=== PATIENT | female | born 1980 | race Two or more races ===

== ENCOUNTER → 2016-10-18 | Outpatient (CLI) | payer OTHER ==
[~2016-10-18] MED LIST: FLUO40CA PO; IBUP600T26 PO; LEVO50TA5 PO; LORT5TAB PO; SIMV10TA2 PO; TRAZ100T4 PO
--- NOTE | 2016-10-27 00:09 | ECWPNPC ---
PATIENT NAME: ALPHONSE CRUZ : 1980 GENDER: FEMALE VISIT DATE: 10/18/2016 DISCHARGE DATE: 10/18/16 1425 VISIT LOCKED DATE TIME: PHYSICIAN: LUCAS MARTIN RESOURCE: LUCAS MARTIN REASON FOR APPOINTMENT 1. BACK PAIN HISTORY OF PRESENT ILLNESS FALL RISK SCREENING: SCREENING :NO FALLS IN THE PAST YEAR PAIN SCREENING: PATIENT HAS A COMPLAINT OF ACUTE OR CHRONIC PAIN YES TODAY'S VISIT: NOTES: REFERRED BY CLAUDIA CONN /GÓMEZ FOR CONTINUED TREATMENT OF BACK PAIN. HAS PREVIOUSLY BEEN A PATIENT OF DR WALI COHN, PAIN MANAGEMENT [id number] AND HAS HAD INTERVENTIONAL TREATMENTS.PAIN BEGAN 2003 AFTER THE OF CHILD. DID PT FROM [id number]. NOTED THAT PAIN CAN BE ACROSS BACK, WRAPPING INTO THIGHS AND INTO BUTTUCKS. WAS HAVING SENSORY CHANGE ON LEFT SIDE. WEAKNESS IS REPORTED IN BOTH LEGS WITH PROLONGED STANDING. LEFT HAS ALWAYS BEEN WORST SIDE. HOT SHOWER IS HELPFUL, TENS CAN HELP, HAVING A HARD TIME SITTING, LAYING, STANDING, WALKING. WAS SEEN BY DR [place] NEUROSURGEON [place] [id number] - TOLD TO LOSE WEIGHT AND HE WOULD SEE HER BACK FOR POSSIBLE SURGERY. . PREVIOUS MEDS HAVE INCLUDED FLEXERIL, TRAMADOL, MORPHINE, HYDROCODONE, IBUPROFEN, RATES PAIN TODAY 6/10. DESCRIBES PAIN CONSTANT, SHARP, STABBINGACHING, BURNING, THROBBING SORE, AND SOMETIMES SHOOTING. MOST RECENT RADIOFREQUENCY ABLATIONS WERE 10/12 ON THE LEFT, AND 07/13 ON THE RIGHT. SHE WOULD LIKE TO MOVE FORWARD WITH THIS THERAPY IT HAS BEEN THE MOST HELP.. CURRENT MEDICATIONS TAKING SYNTHROID 50 MCG TABLET 1 TABLET ON AN EMPTY STOMACH IN THE MORNING ORALLY ONCE A DAY TAKING FLUOXETINE HCL 40 MG CAPSULE 1 CAPSULE IN THE MORNING ORALLY ONCE A DAY TAKING SIMVASTATIN 20 MG TABLET 1 TABLET ORALLY ONCE A DAY TAKING TRAZODONE HCL 50 MG TABLET 1 TABLET ORALLY BEFORE BEDTIME MEDICATION LIST REVIEWED AND RECONCILED WITH THE PATIENT PAST MEDICAL HISTORY FATIGUE INTERVERTEBRAL DISC DISORDER WITH MYELOPATHY. LUMBAR REGION LACTOSE INTOLERANT HYPERLIPIDEMIA GERD HYPOTHYROIDISM NERVOUSNESS HPV ANEMIA ALLERGIES PENICILLIN: ANAPHYLAXIS: ALLERGY MOLD: ITCHING: ALLERGY SURGICAL HISTORY PLASTIC SURGERY ON HER FACE 1983 CHOLECYSTECTOMY 2011 BILATERAL CARPAL TUNNEL SURGERY 2009 RIGHTL FOOT SURGERY 1996 COLONOSCOPY 2014 FAMILY HISTORY FATHER: ALIVE 58 YRS, DIAGNOSED WITH HYPERTENSION, CANCER MOTHER: ALIVE 54 YRS, DIAGNOSED WITH HYPERTENSION, OTHER 1DAUGHTER(S) - HEALTHY. FATHER--ESOPHAGEAL CA, PROSTATE CAMOTHER--UTERINE FIBROIDS,ENDOMETRIOSIS,HYPERLIPIDEMIA, LUPUS, RAYNAUDS. SOCIAL HISTORY GENERAL: TOBACCO USE ARE YOU A:NONSMOKER ALCOHOL SCREENING POINTS3 INTERPRETATIONPOSITIVE RECREATIONAL DRUG USE DRUG USE?NO CAFFEINE CAFFEINE USE?YES HOW OFTEN AND HOW MUCH? 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 DIET: LACTOSE FREE, REGULAR. EXERCISE: NO REGULAR EXERCISE. MARITAL STATUS: . OTHERS AT HOME: SPOUSE, CHILD, OTHER NON-RELATIVE. PETS: 2 CATS. EPISCOPALIAN NO RASTAFARIAN BELIEFS THAT WOULD IMPACT HEALTH CARE. LANGUAGE [place]. EDUCATION 3 YRS [facility] PLAN OF CARE REVIEWED WITH PATIENT AND SHE VERBALIZED UNDERSTANDING.. LEARNING BARRIERS / SPECIAL NEEDS VISION IMPAIRED?YES :CORRECTIVE LENSES COGNITIVELY IMPAIRED?NO READINESS TO LEARN?YES LEARNING PREFERENCES?YES :DEMONSTRATION/VERBAL INSTRUCTION LEARNING CAPABILITIES PRESENT?YES PAIN CLINIC PFS, CLERGY, PUBLIC HEALTH REFERRALS PFS REFERRAL NEEDED?NO CLERGY REFERRAL NEEDED?NO PUBLIC HEALTH REFERRAL NEEDED?NO ADVANCED DIRECTIVES HEALTH CARE PROXY?NO DDECLINED INFORMATION AT THIS TIME. POWER OF DESULPHURIZER OPERATOR?NO DOMESTIC VIOLENCE: NONE. HOSPITALIZATION/MAJOR DIAGNOSTIC PROCEDURE CHILDBIRTH 2004 REVIEW OF SYSTEMS CONSTITUTIONAL: ANY CHANGE IN YOUR MEDICAL CONDITION? NO . CHILLS NO . FEVER NO . INFECTION: DO YOU HAVE NEW INFECTIONS? NO . DO YOU HAVE HISTORY OF MRSA? NO . MUSCULOSKELETAL: ANY NEW PATTERNS OF PAIN OR NUMBNESS? NO . SYTEMIC LUPUS NO . GASTROENTEROLOGY: ANY NEW CHANGE IN BOWEL CONTROL? NO . BARRETTS ESOPHAGUS NO . CIRRHOSIS NO, HAS FATTY LIVER . HEPATITIS NO . LIVER FAILURE NO . ACID REFLUX YES . UNEXPLAINED WEIGHT LOSS NO . GENITOURINARY: ANY NEW CHANGE IN BLADDER CONTROL? NO . IS THERE A CHANCE YOU COULD BE ? NO . HEMATOLOGY/LYMPH: DO YOU TAKE ANY BLOOD THINNERS? (FOR EXAMPLE- COUMADIN, PLAVIX, AGGRENOX, PLATEL, PRADAXA, OR XARELTO) NO . WHEN WAS YOUR LAST DOSE? DATE: TIME: . LOW PLATELET COUNT NO . SICKLE CELL DISEASE NO . VON WILLIEBRANDS NO . FACTOR V LEIDEN NO . THALLASEMIA NO . ANEMIA YES . EASY BRUISING NO . NEUROLOGY: HAVE YOU FALLEN IN THE PAST 6 MONTHS? NO . ANY NEW EXTREMITY NUMBNESS OR WEAKNESS? NO . HEAD INJURY YES, MANY-- FROM CHEERLEADING . DEMENTIA NO . CEREBRAL PALSY NO . MULTIPLE SCLEROSIS NO . DIZZINESS NO . HEADACHE ADMITS,HISTORY OF MIGRAINES . STROKES NO . VERTIGO NO . CARDIOLOGY: DO YOU HAVE A PACEMAKER OR DEFIBRILLATOR? NO . ANGINA NO . HEART ATTACK NO . HEART SURGERY NO . CONGESTIVE HEART FAILURE/FLUID OVERLOAD NO . CHEST PAIN NO . HIGH BLOOD PRESSURE NO . IRREGULAR HEART BEAT NO . RESPIRATORY: HAVE YOU BEEN SICK IN THE PAST WEEK? NO . FEVER NO . FLU LIKE SYMPTOMS? NO . CPAP NO . BYPAP NO . ASTHMA YES,SPORTS INDUCED . EMPHYSEMA NO . CHRONIC LUNG DISEASES NO . SHORTNESS OF BREATH ON EXERTION NO . COUGH NO . SNORING YES . INTEGUMENTARY: DO YOU HAVE ANY RASHES OR OPEN SORES? NO - HAD PSORIASIS WHILE , AND DRY SKIN PATCHES OVER CHEST . ALLERGIC/IMMUNO: ARE YOU ALLERGIC TO SHELLFISH OR IV DYE? NO . ANY NEW ALLERGIES? NO . PSYCHIATRIC: DO YOU HAVE THOUGHTS OF HURTING YOURSELF OR SOMEONE ELSE? NO . ARE YOU ABUSED, NEGLECTED, OR IN AN UNSAFE ENVIRONMENT? NO . ENDOCRINOLOGY: ARE YOU DIABETIC? NO . THYROID DISORDER HYPOTHYROID . OTHER: DO YOU NEED ANY PRESCRIPTIONS? NO . IF YES, PLEASE LIST: ____ . ANY NEW PROBLEMS WITH YOUR MEDICATIONS? NO . WHEN DID YOU LAST EAT? ____ . WHEN DID YOU LAST DRINK? ____ . WHAT DID YOU LAST DRINK? ____ . NAME OF PERSON DRIVING YOU HOME? ____ . DO YOU HAVE ANY OTHER QUESTIONS OR CONCERNS NO . REVIEWED BY: PROVIDER: LUCAS CONN . VITAL SIGNS WT 195 LBS, HT 63 IN, BMI 34.54 INDEX, BP 122/65 MM HG, HR 89 /MIN, RR 16 /MIN, TEMP 98 F, OXYGEN SAT % 99, REVIEWED BY: AD. EXAMINATION GENERAL EXAMINATION: PSYCHALERT , ORIENTED X 3 , APPROPRIATE MOOD AND AFFECT , GOOD EYE CONTACT, EXCELLANT HISTORIAN. HEENT:NORMOCEPHALIC, NO LYMPHADENOPATHY, THYROID ENLARGEMENT NOTED RIGHT GREATER THAN LEFT. LUNGS:CLEAR TO AUSCULTATION BILATERALLY, NO WHEEZES, RALES OR RHONCHI. HEART:NORMAL S1S2, NO MURMURS, CLICK OR RUBS. MUSCULOSKELETAL:MUSCLE STRENGTH TESTING 5/5 BILATERAL. LOWER EXTREMITIES. POINT TENDERNESS OVER LUMBAR SPINOUS PROCESSESS AND ACROSS THE LUMBOSACRAL AXIS. AND, OVER EFTL>RIGHT SACRAL ILIAC JOINTS. PAIN WITH PATRICKS WITH INWARD ROTATION BILATERALLY. NO PAIN WITH PELVIC COMPRESSION. SLOW TO RISE TO STANDING POSITION. POSTUE UPRIGHT . GAIT NONANTALGIC. NEUROLOGIC EXAM:DTR'S 3+ BILATERAL UPPER AND LOWER EXTREMITIES. , DECREASED SENSAATION OVER LEFT ANTERIOR/LATATERAL THIGH AND HYPERSENSITITY IS NOTED OVER LEFT LATERAL CALF.PLANTAR RESPONSE IS FLEXOR NO CLONUS. ASSESSMENTS LUMBAR FACET ARTHROPATHY - M12.88 (PRIMARY) LUMBAR RADICULAR PAIN - M54.16 TREATMENT LUMBAR FACET ARTHROPATHY NOTES: CONTINE EXERCISES AND WALK TOLERATED.WILL OBTAIN RECORDS AND LOOK TO DO DIAGNOSTIC LUMBAR FACET BLOCK AND THEN PROCEDE WITH RADIOFREQUECY ABLATION IF THE DIAGNOSTIC BLOCK PRODUCES RELIEF. WILL DISCUSS WITH DR WHITESIDE WHETHER 2 DIAGNOSTIC BLOCKS PER SIDE WILL BE NEEDED. PROCEDURE CODES FA211 ESTABILISHED PATIENT [facility] FAC[facility] CHARGE DISPOSITION & COMMUNICATION FOLLOW UP 1 MONTH (REASON: AMY FROM DR COHN FOR TREATMENT HISTORY AND NEED MRI REPORTS FROM [facility]ARC[facility]) ELECTRONICALLY SIGNED BY ANTON PAYTON ON 10/26/2016 AT 06:58 PM EDT DISCLAIMER : THIS IS A VISIT SUMMARY EXTRACTED FROM THE [employer] CHART. IT IS NOT A COPY OF THE [employer] PROGRESS NOTE. HARSH
== END ==
LOC: M PAIN 13:20
PROVIDERS: ATTEND Nurse Practitioner Family
DX: Z09 Encounter for follow-up examination after completed treatment for conditions other than malignant neoplasm (principal); G89.29 Other chronic pain; M12.88 Other specific arthropathies, not elsewhere classified, other specified site; M54.16 Radiculopathy, lumbar region; R53.83 Other fatigue; E78.5 Hyperlipidemia, unspecified; K21.9 Gastro-esophageal reflux disease without esophagitis; E03.9 Hypothyroidism, unspecified; D64.9 Anemia, unspecified; Z79.899 Other long term (current) drug therapy; Z88.0 Allergy status to penicillin; Z91.040 Latex allergy status

== ENCOUNTER 2016-10-19 09:50 | Day surgery (SDC) | payer OTHER ==
[~2016-10-19] VITALS: Ht 160 cm; Wt 88.5 kg
[2016-10-19] VITALS (7 sets, daily range): BP systolic 113–127; BP diastolic 57–67
[~2016-10-19 09:50] MED LIST changes: -IBUP600T26 PO; -LORT5TAB PO
[2016-10-19] MEDS ORDERED: LR 1,000 ML IV SCH ×4 (10:15→14:45)
[2016-10-19 10:29] LABS: MEAN CORPUSCULAR HEMOGLOBIN 27.3 pg (27.0-33.0); MEAN CORPUSCULAR HGB CONC 33.4 g/dl (32.0-36.5); MEAN CORPUSCULAR VOLUME 81.6 fl (80.0-96.0); RED CELL DISTRIBUTION WIDTH 12.9 % (11.5-14.5); WHITE BLOOD COUNT 5.7 K/mm3 (4.0-10.0)
[2016-10-19 11:09] LABS: CONTROL LINE UCG INT CTR LINE PRESENT
[2016-10-19] MEDS ORDERED: PROPOFOL 200 MG/20 ML VIAL As Ordered ONE ×5 (12:25→13:28)
[2016-10-19] MEDS ORDERED: ONDANSETRON 4MG/2ML VIAL (J2405) As Ordered ONE (12:25)
[2016-10-19] MEDS ORDERED: fentaNYL 250 MCG/5 ML INJECTION (J3010) As Ordered ONE (12:25)
[2016-10-19] MEDS ORDERED: LIDOCAINE 2% INJ 100 MG/5 ML SDV (FOR ANES.) As Ordered ONE (12:25)
[2016-10-19] MEDS ORDERED: MIDAZOLAM INJ 2 MG/2 ML VIAL (J2250) As Ordered ONE (12:25)
[2016-10-19] MEDS ORDERED: KETOROLAC 60 MG/2 ML VIAL (J1885) As Ordered ONE (12:25)
[2016-10-19] MEDS ORDERED: MORPHINE PCA 1MG/ML 100ML CADD As Ordered ONE (13:59)
[2016-10-19] MEDS ORDERED: MORPHINE 10 MG/ML 1ML VIAL As Ordered ONE (14:11)
[2016-10-19] MEDS: MORPHINE 2 MG/ML 1ML SYRINGE IV PRN ×5 (14:14→14:45)
[2016-10-19] MEDS ORDERED: fentaNYL 100 MCG/2 ML INJECTION (J3010) IV PRN (14:15)
[2016-10-19] MEDS ORDERED: ONDANSETRON 4MG/2ML VIAL (J2405) IV PRN (14:15)
[2016-10-19] MEDS ORDERED: NALOXONE INJ 0.4 MG/1 ML VIAL (J2310) IV PRN (14:30)
[2016-10-19] MEDS ORDERED: EPIDURAL/PCA KEYS XX PRN (14:30)
[2016-10-19] MEDS ORDERED: NALBUPHINE HCL 10 MG/ML AMP (J2300) IV PRN (14:30)
[2016-10-19] MEDS ORDERED: MORPHINE PCA 1MG/ML 100ML CADD IV PRN (14:30)
[2016-10-19] MEDS ORDERED: diphenhydrAMINE INJ 50MG/ML VIAL (J1200) IV PRN (14:30)
[2016-10-19] MEDS ORDERED: IBUPROFEN 600 MG TAB PO PRN (14:45)
--- NOTE | 2016-10-19 18:54 | RO ---
DATE OF PROCEDURE: 10/19/2016 PREOPERATIVE DIAGNOSES: Bleeding, pain and fibroids. POSTOPERATIVE DIAGNOSES: Bleeding, pain and fibroids. OPERATIVE PROCEDURE: Total vaginal hysterectomy with bilateral salpingectomy. The patient retains her ovaries. SURGEON: Jyotsna Saez MD SALES OPERATIONS ASSISTANT: ANESTHESIA: Spinal. BRIEF DESCRIPTION OF PROCEDURE AND FINDINGS: Vernell was brought to the operating room where sufficient LMA anesthesia was induced and she was prepped, draped and positioned in the usual sterile fashion. With the weighted speculum placed, the bladder emptied, and the anterior and posterior aspect of the cervix grasped with a single-tooth tenacula. Sharp and blunt dissection were continued around the base of the cervix with an incision made circumferentially and then the cardinal ligaments were isolated and clamped, transected and ligated. The SuperCut scissors were used. The Gilbert clamps were used and #0 Vicryl suture was used which was used throughout. Posterior reflection of the peritoneum was then entered. The uterosacrals were clamped, transected and ligated, and then sharp dissection was continued anteriorly. There was a little bit of scar tissue over the lower uterine segment and so this was sharply dissected to avoid injury to the bladder, which was carefully displaced anteriorly and the uterine vasculature was isolated in a sequential fashion clamped, transected and ligated in order to deliver the uterus with the peritoneal reflection displaced anteriorly after that. Scar tissue had carefully been worked through and the dissection continued until the utero-ovarian suspensory ligaments and the round ligaments could be clamped, transected, and ligated as well as were the fallopian tubes initially. The uterus was then delivered. The pedicles all carefully ligated and then the fallopian tubes brought down by the fimbriated end and again clamped with the De Bond clamps, removed and then the pedicles oversewn again with #0 Vicryl suture. A sponge and a stick was then used to carefully visualize the pedicles and confirm good hemostasis. Angled stitches of #0 Vicryl were then taken in the vaginal cuff and the uterosacrals were of course incorporated for support and the vaginal cuff then closed in a running locked stitch of #0 Vicryl with good approximation and hemostasis achieved. The procedure was then ended with a Perez placed to keep the bladder empty. Clear urine was again returned. Estimated blood loss for the procedure is about 25 mL. Fluid replaced was Crystalloid. Complications: None. Condition and disposition: Vernell tolerated the procedure well and was recovering in the recovery room in good condition.
[2016-10-19] MEDS ORDERED: SIMVASTATIN 10 MG TAB PO SCH (21:00)
[2016-10-19] MEDS ORDERED: SIMVASTATIN 20 MG TAB PO SCH (21:00)
[2016-10-20] VITALS: BP 119/62
[2016-10-20 04:00] VITALS: BP 125/73
[2016-10-20] MEDS ORDERED: LEVOTHYROXINE 0.05 MG TAB (50 MCG) PO SCH (06:00)
[2016-10-20] MEDS ORDERED: NORCO, ANEXSIA 5/325MG TABLET (HYDROcodone/ACETAMINOPHEN) PO PRN (06:00)
[2016-10-20 08:00] VITALS: BP 130/74
[2016-10-20] MEDS ORDERED: FLUoxetine 20 MG CAP PO SCH ×2 (09:00)
[2016-10-20 09:20] LABS: MEAN CORPUSCULAR HEMOGLOBIN 26.5 pg (27.0-33.0); MEAN CORPUSCULAR HGB CONC 32.4 g/dl (32.0-36.5); MEAN CORPUSCULAR VOLUME 81.7 fl (80.0-96.0); RED CELL DISTRIBUTION WIDTH 13.1 % (11.5-14.5); WHITE BLOOD COUNT 8.4 K/mm3 (4.0-10.0)
[2016-10-20 09:45] VITALS: BP 138/78
[2016-10-20 12:00] VITALS: BP 143/82
[2016-10-20] MEDS ORDERED: LORT5TAB PO (13:28)
[2016-10-20] MEDS ORDERED: IBUP600T26 PO (13:28)
== END 2016-10-20 14:18 | disposition home or self-care (01) ==
LOC: M SDC 09:50 → M PED 15:35 → M SDC 10-20 14:18
PROVIDERS: ATTEND Obstetrics & Gynecology
DX: N93.9 Abnormal uterine and vaginal bleeding, unspecified (principal); R10.2 Pelvic and perineal pain; D25.9 Leiomyoma of uterus, unspecified; J45.909 Unspecified asthma, uncomplicated; E78.00 Pure hypercholesterolemia, unspecified; F32.9 Major depressive disorder, single episode, unspecified; G43.909 Migraine, unspecified, not intractable, without status migrainosus; E66.9 Obesity, unspecified; F41.9 Anxiety disorder, unspecified; M46.90 Unspecified inflammatory spondylopathy, site unspecified; E03.9 Hypothyroidism, unspecified; Z79.899 Other long term (current) drug therapy; Z88.0 Allergy status to penicillin
CPT/HCPCS: 36415; 58262; 84703; 85014; 85018; 85027; 86850; 86900; 86901; 88309; J0690; J1885; J2250; J2405; J3010

== ENCOUNTER → 2016-11-13 | Outpatient (CLI) | payer OTHER ==
[~2016-11-13] MED LIST changes: +IBUP600T26 PO; +LORT5TAB PO
--- NOTE | 2016-11-25 00:34 | ECWPNPC ---
PATIENT NAME: ALPHONSE CRUZ : 1980 GENDER: FEMALE VISIT DATE: 11/13/2016 DISCHARGE DATE: 11/13/16 1629 VISIT LOCKED DATE TIME: PHYSICIAN: LUCAS MARTIN RESOURCE: LUCAS MARTIN REASON FOR APPOINTMENT 1. BACK HISTORY OF PRESENT ILLNESS HISTORY OF PRESENT ILLNESS: PAIN THE PATIENT DESCRIBES THE PAIN... FALL RISK SCREENING: SCREENING :NO FALLS IN THE PAST YEAR TODAY'S VISIT: NOTES: RATES PAIN TODAY 5/10. DESCRIBES PAIN CONSTANT, SHARP AND TENDER. IS S/P PARTIAL HYSTER AND RTW AT 2 WEEKS. IS HAVING VAGINAL BLEEDING AND DID FOLLOWUP WITH SURGEON. INCREASE IN PAIN RIGHT AFTER SURGERY. PAIN HAS RET TO BASELINE. HAS SOME FLARES OF BACK PAIN,. NO RECENT RADIATION TO PAIN TO LEGS. . CURRENT MEDICATIONS TAKING SYNTHROID 50 MCG TABLET 1 TABLET ON AN EMPTY STOMACH IN THE MORNING ORALLY ONCE A DAY TAKING FLUOXETINE HCL 40 MG CAPSULE 1 CAPSULE IN THE MORNING ORALLY ONCE A DAY TAKING SIMVASTATIN 20 MG TABLET 1 TABLET ORALLY ONCE A DAY TAKING TRAZODONE HCL 50 MG TABLET 1 TABLET ORALLY BEFORE BEDTIME MEDICATION LIST REVIEWED AND RECONCILED WITH THE PATIENT PAST MEDICAL HISTORY FATIGUE INTERVERTEBRAL DISC DISORDER WITH MYELOPATHY. LUMBAR REGION LACTOSE INTOLERANT HYPERLIPIDEMIA GERD HYPOTHYROIDISM NERVOUSNESS HPV ANEMIA ALLERGIES PENICILLIN: ANAPHYLAXIS: ALLERGY MOLD: ITCHING: ALLERGY SURGICAL HISTORY PLASTIC SURGERY ON HER FACE 1983 CHOLECYSTECTOMY 2011 BILATERAL CARPAL TUNNEL SURGERY 2009 RIGHTL FOOT SURGERY 1996 COLONOSCOPY 2014 PARTIAL HYSTERECTOMY 10/19/16 SOCIAL HISTORY GENERAL: PAIN CLINIC PFS, CLERGY, PUBLIC HEALTH REFERRALS CLERGY REFERRAL NEEDED?NO WAS THE PROVIDER NOTIFIED OF ANY PERTINENT INFO?NO PFS REFERRAL NEEDED?NO PUBLIC HEALTH REFERRAL NEEDED?NO PATIENT: ____. HOSPITALIZATION/MAJOR DIAGNOSTIC PROCEDURE CHILDBIRTH 2003 REVIEW OF SYSTEMS CONSTITUTIONAL: ANY CHANGE IN YOUR MEDICAL CONDITION? YES, HAD PARTIAL HYSTERECTOMY 10/19/16 . CHILLS NO . FEVER NO . INFECTION: DO YOU HAVE NEW INFECTIONS? NO . DO YOU HAVE HISTORY OF MRSA? NO . MUSCULOSKELETAL: ANY NEW PATTERNS OF PAIN OR NUMBNESS? NO . GASTROENTEROLOGY: ANY NEW CHANGE IN BOWEL CONTROL? YES,DUE TO PULLED ANUS MUSCLE DURING HYSTER. . GENITOURINARY: ANY NEW CHANGE IN BLADDER CONTROL? YES, HAD UTI AFTER HYSTER. . IS THERE A CHANCE YOU COULD BE ? NO . HEMATOLOGY/LYMPH: DO YOU TAKE ANY BLOOD THINNERS? (FOR EXAMPLE- COUMADIN, PLAVIX, AGGRENOX, PLATEL, PRADAXA, OR XARELTO) NO . WHEN WAS YOUR LAST DOSE? DATE: TIME: . NEUROLOGY: HAVE YOU FALLEN IN THE PAST 6 MONTHS? NO . ANY NEW EXTREMITY NUMBNESS OR WEAKNESS? NO . CARDIOLOGY: DO YOU HAVE A PACEMAKER OR DEFIBRILLATOR? NO . RESPIRATORY: HAVE YOU BEEN SICK IN THE PAST WEEK? YES URI . FEVER NO . FLU LIKE SYMPTOMS? NO . COUGH YES, PRODUCTIVE--RAISING GREENISH, YELLOW MUCUS . INTEGUMENTARY: DO YOU HAVE ANY RASHES OR OPEN SORES? NO . ALLERGIC/IMMUNO: ARE YOU ALLERGIC TO SHELLFISH OR IV DYE? NO . ANY NEW ALLERGIES? NO . PSYCHIATRIC: DO YOU HAVE THOUGHTS OF HURTING YOURSELF OR SOMEONE ELSE? NO . ARE YOU ABUSED, NEGLECTED, OR IN AN UNSAFE ENVIRONMENT? NO . ENDOCRINOLOGY: ARE YOU DIABETIC? NO . OTHER: DO YOU NEED ANY PRESCRIPTIONS? NO . IF YES, PLEASE LIST: ____ . ANY NEW PROBLEMS WITH YOUR MEDICATIONS? NO . WHEN DID YOU LAST EAT? ____ . WHEN DID YOU LAST DRINK? ____ . WHAT DID YOU LAST DRINK? ____ . NAME OF PERSON DRIVING YOU HOME? ____ . DO YOU HAVE ANY OTHER QUESTIONS OR CONCERNS NO . REVIEWED BY: PROVIDER: LUCAS CONN . VITAL SIGNS WT 194.2 LBS, HT 63 IN, BMI 34.40 INDEX, BP 129/70 MM HG, HR 58 /MIN, RR 16 /MIN, TEMP 99.4 F, OXYGEN SAT % 97%, NA INITIALS SC 15:45, REVIEWED BY: AD. EXAMINATION GENERAL EXAMINATION: PSYCHALERT , ORIENTED X 3 , APPROPRIATE MOOD AND AFFECT , GOOD EYE CONTACT, EXCELLANT HISTORIAN. HEENT:NORMOCEPHALIC, NO LYMPHADENOPATHY, THYROID ENLARGEMENT NOTED RIGHT GREATER THAN LEFT. LUNGS:CLEAR TO AUSCULTATION BILATERALLY, NO WHEEZES, RALES OR RHONCHI. HEART:NORMAL S1S2, NO MURMURS, CLICK OR RUBS. MUSCULOSKELETAL:MUSCLE STRENGTH TESTING 5/5 BILATERAL. LOWER EXTREMITIES. POINT TENDERNESS OVER LUMBAR SPINOUS PROCESSESS AND ACROSS THE LUMBOSACRAL AXIS. AND, OVER EFTL>RIGHT SACRAL ILIAC JOINTS. PAIN WITH PATRICKS WITH INWARD ROTATION BILATERALLY. NO PAIN WITH PELVIC COMPRESSION. SLOW TO RISE TO STANDING POSITION. POSTUE UPRIGHT . GAIT NONANTALGIC. NEUROLOGIC EXAM:DTR'S 3+ BILATERAL UPPER AND LOWER EXTREMITIES. , DECREASED SENSAATION OVER LEFT ANTERIOR/LATATERAL THIGH AND HYPERSENSITITY IS NOTED OVER LEFT LATERAL CALF.PLANTAR RESPONSE IS FLEXOR NO CLONUS. ASSESSMENTS LUMBAR FACET ARTHROPATHY - M12.88 (PRIMARY) LUMBAR RADICULAR PAIN - M54.16 TREATMENT LUMBAR FACET ARTHROPATHY START NORCO TABLET, 5-325 MG, 1 TABLET NEEDED, ORALLY, EVERY 8-12 HRS PRN PAIN MDD=2, 30 DAY(S), 60, REFILLS 0 NOTES: CONSIDER BIOFREEZE TO LOW BACK. DO STRETCHES, WALK DAILY. CLINICAL NOTES: ISTOP REGISTRY REVIEWED AND DEMNOSTRATES COMPLLIANCE. BRINGS IN MEDICATIONS WHICH IS APPROPRIATE FOR WHAT WAS DISPENSED. RECENT URINE TOXICOLOGY REVIEWED. NO UNAUTHORIZED MEDICATIONS. NO ILLICIT SUBSTANCES AND PRESCRIBED MEDICATIONS WERE PRESENT. PROCEDURE CODES FA211 ESTABILISHED PATIENT [facility] CHARGE DISPOSITION & COMMUNICATION FOLLOW UP 2 MONTHS ELECTRONICALLY SIGNED BY ANTON PAYTON ON 11/24/2016 AT 06:18 PM EDT DISCLAIMER : THIS IS A VISIT SUMMARY EXTRACTED FROM THE [email or web address] CHART. IT IS NOT A COPY OF THE [email or web address] PROGRESS NOTE. HARSH
== END ==
LOC: M PAIN 15:20
PROVIDERS: ATTEND Nurse Practitioner Family
DX: M54.16 Radiculopathy, lumbar region (principal); M12.88 Other specific arthropathies, not elsewhere classified, other specified site; R53.83 Other fatigue; E78.5 Hyperlipidemia, unspecified; K21.9 Gastro-esophageal reflux disease without esophagitis; E03.9 Hypothyroidism, unspecified; D64.9 Anemia, unspecified; R45.0 Nervousness; Z79.899 Other long term (current) drug therapy; Z88.0 Allergy status to penicillin; Z91.048 Other nonmedicinal substance allergy status

== ENCOUNTER → 2017-01-25 | Outpatient (CLI) | payer OTHER ==
[~2017-01-25] MED LIST changes: +IBUP-1022 PO; -IBUP600T26 PO; +TRAZ-136 PO; -TRAZ100T4 PO
--- NOTE | 2017-02-14 03:24 | ECWPNPC ---
PATIENT NAME: ALPHONSE CRUZ : 1980 GENDER: FEMALE VISIT DATE: 01/25/2017 DISCHARGE DATE: 01/25/17 1612 VISIT LOCKED DATE TIME: PHYSICIAN: LUCAS MARTIN RESOURCE: LUCAS MARTIN HISTORY OF PRESENT ILLNESS HISTORY OF PRESENT ILLNESS: PAIN THE PATIENT DESCRIBES THE PAIN... FALL RISK SCREENING: SCREENING :NO FALLS IN THE PAST YEAR TODAY'S VISIT: NOTES: RATES PAIN TODAY 8/10. PAIN CENTERD OVER LOW BACK AND LOW ABD. DESCRIBES PAIN AAS CONSTANT, SHARP, SHOOTING, ACHING, TENDER AND SORE. BACK WAS DOING REALLY WELL BUT HAS HAD RECENT INCREASE IN PAIN AFTER INCREASE IN ACTIVITY. HAS NOT BEEN ABLE TO LAY DOWN WHICH WAS HER COMFORT POSITION. IS HAVING A SHARP IN CENTER OF SPINE. NOTES A RESTLESS LEG AND NUMB SENSATION IN LEGS. NO RECENT FALLS. NO WEAKNESS LOWER EXTREMITIES. CURRENT MEDICATIONS TAKING SYNTHROID 50 MCG TABLET 1 TABLET ON AN EMPTY STOMACH IN THE MORNING ORALLY ONCE A DAY TAKING FLUOXETINE HCL 40 MG CAPSULE 1 CAPSULE IN THE MORNING ORALLY ONCE A DAY TAKING SIMVASTATIN 20 MG TABLET 1 TABLET ORALLY ONCE A DAY TAKING TRAZODONE HCL 50 MG TABLET 1 TABLET ORALLY BEFORE BEDTIME TAKING NORCO 5-325 MG TABLET 1 TABLET NEEDED ORALLY EVERY 8-12 HRS PRN PAIN MDD=2 PAST MEDICAL HISTORY FATIGUE INTERVERTEBRAL DISC DISORDER WITH MYELOPATHY. LUMBAR REGION LACTOSE INTOLERANT HYPERLIPIDEMIA GERD HYPOTHYROIDISM NERVOUSNESS HPV ANEMIA ALLERGIES PENICILLIN: ANAPHYLAXIS: ALLERGY MOLD: ITCHING: ALLERGY REVIEW OF SYSTEMS FOLLOW-UP ROS: PSYCHOLOGY: FRUSTRATED WITH LOSS OF FUNCTION, LEVEL OF PAIN AND INABILITY TO DO SIMPLE ACTIVITIES OF DAILY LIVING . REVIEWED BY: PROVIDER: LUCAS MARTIN BLOW TORCH BURNER . CONSTITUTIONAL: ANY CHANGE IN YOUR MEDICAL CONDITION? NO . CHILLS NO . FEVER NO . INFECTION: DO YOU HAVE NEW INFECTIONS? NO . DO YOU HAVE HISTORY OF MRSA? NO . MUSCULOSKELETAL: ANY NEW PATTERNS OF PAIN OR NUMBNESS? YES EXPERIENCING MORE DISCOMFORT AND HAS NOT BEEN SLEEPING WELL/ PT HAS BEEN 4 WHEELING AND LINE DANCING . GASTROENTEROLOGY: ANY NEW CHANGE IN BOWEL CONTROL? NO . GENITOURINARY: ANY NEW CHANGE IN BLADDER CONTROL? NO . IS THERE A CHANCE YOU COULD BE ? NO . HEMATOLOGY/LYMPH: DO YOU TAKE ANY BLOOD THINNERS? (FOR EXAMPLE- COUMADIN, PLAVIX, AGGRENOX, PLATEL, PRADAXA, OR XARELTO) NO . WHEN WAS YOUR LAST DOSE? DATE: TIME: . NEUROLOGY: HAVE YOU FALLEN IN THE PAST 6 MONTHS? NO . ANY NEW EXTREMITY NUMBNESS OR WEAKNESS? NO . MEMORY DISTURBANCE DIFFICULT WITH CONCENTRATION AND WORD FINDING AT TIMES . CARDIOLOGY: DO YOU HAVE A PACEMAKER OR DEFIBRILLATOR? NO . RESPIRATORY: HAVE YOU BEEN SICK IN THE PAST WEEK? NO . FEVER NO . FLU LIKE SYMPTOMS? NO . COUGH NO . INTEGUMENTARY: DO YOU HAVE ANY RASHES OR OPEN SORES? NO . ALLERGIC/IMMUNO: ARE YOU ALLERGIC TO SHELLFISH OR IV DYE? NO . ANY NEW ALLERGIES? NO . PSYCHIATRIC: DO YOU HAVE THOUGHTS OF HURTING YOURSELF OR SOMEONE ELSE? NO . ARE YOU ABUSED, NEGLECTED, OR IN AN UNSAFE ENVIRONMENT? NO . ENDOCRINOLOGY: ARE YOU DIABETIC? NO . OTHER: DO YOU NEED ANY PRESCRIPTIONS? NO . IF YES, PLEASE LIST: ____ . ANY NEW PROBLEMS WITH YOUR MEDICATIONS? NO . WHEN DID YOU LAST EAT? ____ . WHEN DID YOU LAST DRINK? ____ . WHAT DID YOU LAST DRINK? ____ . NAME OF PERSON DRIVING YOU HOME? ____ . DO YOU HAVE ANY OTHER QUESTIONS OR CONCERNS NO . VITAL SIGNS WT 196.8 LBS, HT 63 IN, BMI 34.86 INDEX, BP 131/76 MM HG, HR 58 /MIN, RR 16 /MIN, TEMP 98.1 F, OXYGEN SAT % 98%, NA INITIALS SC 15:35. EXAMINATION GENERAL EXAMINATION: PSYCHALERT , ORIENTED X 3 . HEENT:NORMOCEPHALIC, NO LYMPHADENOPATHY, THYROID ENLARGEMENT NOTED RIGHT GREATER THAN LEFT. LUNGS:CLEAR TO AUSCULTATION BILATERALLY, NO WHEEZES, RALES OR RHONCHI. HEART:NORMAL S1S2, NO MURMURS, CLICK OR RUBS. MUSCULOSKELETAL:MUSCLE STRENGTH TESTING 5/5 BILATERAL. LOWER EXTREMITIES. POINT TENDERNESS OVER LUMBAR SPINOUS PROCESSESS AND ACROSS THE LUMBOSACRAL AXIS. AND, OVER EFTL>RIGHT SACRAL ILIAC JOINTS. SLOW TO RISE TO STANDING POSITION. POSTURE UPRIGHT . GAIT NONANTALGIC. NEUROLOGIC EXAM:DTR'S 3+ BILATERAL UPPER AND LOWER EXTREMITIES. , DECREASED SENSAATION OVER LEFT ANTERIOR/LATATERAL THIGH AND HYPERSENSITITY IS NOTED OVER LEFT LATERAL CALF.. ASSESSMENTS LUMBAR FACET ARTHROPATHY - M12.88 (PRIMARY) LUMBAR RADICULAR PAIN - M54.16 TREATMENT LUMBAR FACET ARTHROPATHY START INDOMETHACIN CAPSULE, 50 MG, 1 CAPSULE WITH FOOD OR MILK, ORALLY, TWICE A DAY, 30 DAY(S), 60, REFILLS 1 START GABAPENTIN CAPSULE, 100 MG, DIRECTED, ORALLY, BID, 30 DAY(S), 60, REFILLS 1 NOTES: USE NORCO SPARINGLY. HEAT TO LOW BACK. CONTINUE BIOFREEZE. DISPOSITION & COMMUNICATION FOLLOW UP 1 MONTH (REASON: BACK) ELECTRONICALLY SIGNED BY ANTON PAYTON ON 02/13/2017 AT 01:56 PM EDT DISCLAIMER : THIS IS A VISIT SUMMARY EXTRACTED FROM THE [email or web address] CHART. IT IS NOT A COPY OF THE [email or web address] PROGRESS NOTE. HARSH
== END ==
LOC: M PAIN 15:20
PROVIDERS: ATTEND Nurse Practitioner Family
DX: G89.29 Other chronic pain (principal); M12.88 Other specific arthropathies, not elsewhere classified, other specified site; M51.16 Intervertebral disc disorders with radiculopathy, lumbar region; R53.83 Other fatigue; E73.9 Lactose intolerance, unspecified; E78.5 Hyperlipidemia, unspecified; K21.9 Gastro-esophageal reflux disease without esophagitis; E03.9 Hypothyroidism, unspecified; D64.9 Anemia, unspecified; R45.0 Nervousness; Z91.048 Other nonmedicinal substance allergy status; Z88.0 Allergy status to penicillin; Z79.891 Long term (current) use of opiate analgesic; Z79.899 Other long term (current) drug therapy

== ENCOUNTER → 2017-02-15 | Outpatient (CLI) | payer OTHER | LOC: M PAIN 15:00 | PROVIDERS: ATTEND Nurse Practitioner Family | DX: G89.29 Other chronic pain (principal) ==

== ENCOUNTER → 2017-02-26 | Outpatient (CLI) | payer OTHER ==
--- NOTE | 2017-03-17 01:24 | ECWPNPC ---
PATIENT NAME: ALPHONSE CRZU : 1980 GENDER: FEMALE VISIT DATE: 02/26/2017 DISCHARGE DATE: 02/26/17 1628 VISIT LOCKED DATE TIME: PHYSICIAN: LUCAS MARTIN RESOURCE: LUCAS MARTIN REASON FOR APPOINTMENT 1. BACK PAIN HISTORY OF PRESENT ILLNESS HISTORY OF PRESENT ILLNESS: PAIN THE PATIENT DESCRIBES THE PAIN... FALL RISK SCREENING: SCREENING :NO FALLS IN THE PAST YEAR TODAY'S VISIT: NOTES: RATES PAIN TODAY 8/10. DESCRIBES PAIN CONSTANT, ACHING AND BURNING, STABBING, TENDER AND SORE.SOME DAYS ARE BETTER THAN OTHERS. ACTIVITY DOES INCREASE PAIN. USES HYDROCODONE INFREQ AND HAS ONLY A FEW HOURS OF RELIEF. IS NOT SURE IF IS GETTING MUCH RELIEF FROM INDOCIN AND GABAPENTIN.. CURRENT MEDICATIONS TAKING SYNTHROID 50 MCG TABLET 1 TABLET ON AN EMPTY STOMACH IN THE MORNING ORALLY ONCE A DAY TAKING FLUOXETINE HCL 40 MG CAPSULE 1 CAPSULE IN THE MORNING ORALLY ONCE A DAY TAKING SIMVASTATIN 20 MG TABLET 1 TABLET ORALLY ONCE A DAY TAKING TRAZODONE HCL 50 MG TABLET 1 TABLET ORALLY BEFORE BEDTIME TAKING NORCO 5-325 MG TABLET 1 TABLET NEEDED ORALLY EVERY 8-12 HRS PRN PAIN MDD=2 TAKING INDOMETHACIN 50 MG CAPSULE 1 CAPSULE WITH FOOD OR MILK ORALLY TWICE A DAY TAKING GABAPENTIN 100 MG CAPSULE DIRECTED ORALLY BID TAKING TYLENOL EXTRA STRENGTH 500 MG TABLET 2 TABLETS NEEDED ORALLY EVERY 6 HRS TAKING ONE DAILY FOR WOMEN - TABLET ORALLY MEDICATION LIST REVIEWED AND RECONCILED WITH THE PATIENT PAST MEDICAL HISTORY FATIGUE INTERVERTEBRAL DISC DISORDER WITH MYELOPATHY. LUMBAR REGION LACTOSE INTOLERANT HYPERLIPIDEMIA GERD HYPOTHYROIDISM NERVOUSNESS HPV ANEMIA ALLERGIES PENICILLIN: ANAPHYLAXIS: ALLERGY MOLD: ITCHING: ALLERGY REVIEW OF SYSTEMS REVIEWED BY: PROVIDER: LUCAS MARTIN WIRE THREADER . CONSTITUTIONAL: ANY CHANGE IN YOUR MEDICAL CONDITION? NO . CHILLS NO . FEVER NO . INFECTION: DO YOU HAVE NEW INFECTIONS? NO . DO YOU HAVE HISTORY OF MRSA? NO . MUSCULOSKELETAL: ANY NEW PATTERNS OF PAIN OR NUMBNESS? NO . GASTROENTEROLOGY: ANY NEW CHANGE IN BOWEL CONTROL? NO . GENITOURINARY: ANY NEW CHANGE IN BLADDER CONTROL? NO . IS THERE A CHANCE YOU COULD BE ? NO . HEMATOLOGY/LYMPH: DO YOU TAKE ANY BLOOD THINNERS? (FOR EXAMPLE- COUMADIN, PLAVIX, AGGRENOX, PLATEL, PRADAXA, OR XARELTO) NO . WHEN WAS YOUR LAST DOSE? DATE: TIME: . NEUROLOGY: HAVE YOU FALLEN IN THE PAST 6 MONTHS? NO . ANY NEW EXTREMITY NUMBNESS OR WEAKNESS? NO . CARDIOLOGY: DO YOU HAVE A PACEMAKER OR DEFIBRILLATOR? NO . RESPIRATORY: HAVE YOU BEEN SICK IN THE PAST WEEK? NO . FEVER NO . FLU LIKE SYMPTOMS? NO . COUGH NO . INTEGUMENTARY: DO YOU HAVE ANY RASHES OR OPEN SORES? NO . ALLERGIC/IMMUNO: ARE YOU ALLERGIC TO SHELLFISH OR IV DYE? NO . ANY NEW ALLERGIES? NO . PSYCHIATRIC: DO YOU HAVE THOUGHTS OF HURTING YOURSELF OR SOMEONE ELSE? NO . ARE YOU ABUSED, NEGLECTED, OR IN AN UNSAFE ENVIRONMENT? NO . ENDOCRINOLOGY: ARE YOU DIABETIC? NO . OTHER: DO YOU NEED ANY PRESCRIPTIONS? NO . IF YES, PLEASE LIST: ____ . ANY NEW PROBLEMS WITH YOUR MEDICATIONS? NO . WHEN DID YOU LAST EAT? ____ . WHEN DID YOU LAST DRINK? ____ . WHAT DID YOU LAST DRINK? ____ . NAME OF PERSON DRIVING YOU HOME? ____ . DO YOU HAVE ANY OTHER QUESTIONS OR CONCERNS NO . VITAL SIGNS WT 200.0 LBS, HT 63 IN, BMI 35.42 INDEX, BP 131/89 MM HG, HR 82 /MIN, RR 16 /MIN, TEMP 98.2 F, OXYGEN SAT % 97%, NA INITIALS TL 1540, REVIEWED BY: NL. EXAMINATION GENERAL EXAMINATION: PSYCHALERT , ORIENTED X 3 . LUNGS:CLEAR TO AUSCULTATION BILATERALLY, NO WHEEZES, RALES OR RHONCHI. HEART:HEART RATE REGULAR. MUSCULOSKELETAL:MUSCLE STRENGTH TESTING 5/5 BILATERAL. LOWER EXTREMITIES. POINT TENDERNESS OVER LUMBAR SPINOUS PROCESSESS AND ACROSS THE LUMBOSACRAL AXIS. AND, OVER EFTL>RIGHT SACRAL ILIAC JOINTS. SLOW TO RISE TO STANDING POSITION. POSTURE UPRIGHT . GAIT NONANTALGIC. NEUROLOGIC EXAM:DTR'S 2+ BILATERAL UPPER AND LOWER EXTREMITIES. , DECREASED SENSAATION OVER LEFT ANTERIOR/LATATERAL THIGH AND HYPERSENSITITY IS NOTED OVER LEFT LATERAL CALF.. ASSESSMENTS LUMBAR FACET ARTHROPATHY - M12.88 (PRIMARY) LUMBAR RADICULAR PAIN - M54.16 TROCHANTERIC BURSITIS OF LEFT HIP - M70.62 TROCHANTERIC BURSITIS, RIGHT HIP - M70.61 TREATMENT LUMBAR FACET ARTHROPATHY CONTINUE GABAPENTIN CAPSULE, 100 MG, DIRECTED, ORALLY, BID, 30 DAY(S), 60, REFILLS 2 HIPS BILAT 2 VIEW W/ AP [id number] 02/26/2017 4:11:54 PM > HIP BURSA PAIN/BURSITIS ARTHROCENTESIS INJECTION LARGE JOINT ([id number])RYDER MARTINLAUREN Whitten 02/26/2017 4:13:52 PM > LEFT HIP/TROCANTER NOTES: DECREASE INDOMETHICIN TO ONCE PER DAY FOR ONE WEEK - IF NO CHANGE IN PAIN STOP. CONTINUE GABAPENTIN. PREVENTIVE MEDICINE DISCUSSED PRE PROCEDURE CARE AND GAVE PRINTED INFO / PT EXPRESSED UNDERSTANDING. PROCEDURE CODES FA211 ESTABILISHED PATIENT [facility] CHARGE DISPOSITION & COMMUNICATION FOLLOW UP 1 MONTH (REASON: BACK PAIN) ELECTRONICALLY SIGNED BY ANTON PAYTON ON 03/16/2017 AT 09:20 AM EDT DISCLAIMER : THIS IS A VISIT SUMMARY EXTRACTED FROM THE [employer] CHART. IT IS NOT A COPY OF THE [employer] PROGRESS NOTE. HARSH
== END ==
LOC: M PAIN 15:30
PROVIDERS: ATTEND Nurse Practitioner Family
DX: M12.88 Other specific arthropathies, not elsewhere classified, other specified site (principal); M54.16 Radiculopathy, lumbar region; M70.62 Trochanteric bursitis, left hip; M70.61 Trochanteric bursitis, right hip; Z79.891 Long term (current) use of opiate analgesic; Z79.899 Other long term (current) drug therapy; Z88.0 Allergy status to penicillin; Z91.048 Other nonmedicinal substance allergy status

== ENCOUNTER → 2017-03-08 | Outpatient (CLI) | payer OTHER ==
--- NOTE | 2017-03-08 20:07 | REP ---
AP PELVIS AND BILATERAL HIPS: 03/08/2017. Clinical history: Pain. Arthropathy. Findings: There are no prior studies. The pelvic ring was intact. SI joints, sacral ala and foramina unremarkable. The iliac wings, acetabuli, pubic rami, symphysis pubis are unremarkable. There is a tiny soft tissue calcification adjacent to the acetabular roof on the left. A single pelvic surgical clip is seen in the midline over the coccyx. Right hip: Hip joint space was preserved. No fracture or AVN. No focal lesion. Left hip: The hip joint space is preserved. There is no fracture or focal lesion. There is some minor soft tissue calcification at the acetabular roof which could be labral calcification. No AVN, fracture or avulsion. Impression: 1. Hip joint spaces preserved. No visible or displaced fracture, avulsion or focal bone lesion. 2. The AP pelvis unremarkable. 3. Tiny soft tissue calcification acetabular roof on the left could be labral calcification. Signed by Eduard Hosikns MD 03/09/2017 11:11 A
== END ==
LOC: M RAD 16:37
PROVIDERS: ATTEND Nurse Practitioner Family
DX: M12.88 Other specific arthropathies, not elsewhere classified, other specified site (principal)

== ENCOUNTER → 2017-04-12 | Outpatient (REF) | payer OTHER | LOC: M LAB REF 13:24 | PROVIDERS: ATTEND Physician Assistant | DX: J02.9 Acute pharyngitis, unspecified (principal) ==

== ENCOUNTER → 2017-04-18 | Outpatient (CLI) | payer OTHER ==
[~2017-04-18] MED LIST changes: +BUPIVACAINE HCL 0.25% 30 ML VIAL As Ordered ONE; +ISOVUE-M 300 61% 15ML VIAL (Q9967) As Ordered ONE; +LIDOCAINE 1% SDV INJ 30 ML VIAL As Ordered ONE
--- NOTE | 2017-04-18 15:03 | REP ---
Partial lumbar spine series: Two views . History: Injection procedure for pain. 30 seconds of fluoroscopy time is reported. Findings: A sequence of two fluoroscopically obtained last image hold procedural spot radiographs of the lumbar spine document needle position and contrast injection associated with injection procedure. Signed by Huang Beltran MD 04/18/2017 02:54 P
--- NOTE | 2017-04-20 00:08 | ECWPNPC ---
PATIENT NAME: ALPHONSE CRUZ : 1980 GENDER: FEMALE VISIT DATE: 04/18/2017 DISCHARGE DATE: 04/18/17 1510 VISIT LOCKED DATE TIME: PHYSICIAN: TIANNA WHITESIDE RESOURCE: TIANNA WHITESIDE REASON FOR APPOINTMENT 1. HIP INJ, BURSA HISTORY OF PRESENT ILLNESS HISTORY OF PRESENT ILLNESS: PAIN THE PATIENT DESCRIBES THE PAIN... FALL RISK SCREENING: SCREENING :NO FALLS IN THE PAST YEAR CURRENT MEDICATIONS TAKING SYNTHROID 50 MCG TABLET 1 TABLET ON AN EMPTY STOMACH IN THE MORNING ORALLY ONCE A DAY, NOTES: 04/18 530 TAKING FLUOXETINE HCL 40 MG CAPSULE 1 CAPSULE IN THE MORNING ORALLY ONCE A DAY, NOTES: 04/18 530 TAKING SIMVASTATIN 20 MG TABLET 1 TABLET ORALLY ONCE A DAY, NOTES: 04/18 530 TAKING TRAZODONE HCL 50 MG TABLET 1 TABLET ORALLY BEFORE BEDTIME, NOTES: 04/17 2100 TAKING TYLENOL EXTRA STRENGTH 500 MG TABLET 2 TABLETS NEEDED ORALLY EVERY 6 HRS, NOTES: NONE RECENT TAKING ONE DAILY FOR WOMEN - TABLET ORALLY , NOTES: 04/17 2100 TAKING GABAPENTIN 100 MG CAPSULE DIRECTED ORALLY BID, NOTES: 04/17 2100 TAKING INDOMETHACIN 50 MG CAPSULE 1 CAPSULE WITH FOOD OR MILK ORALLY TWICE A DAY, NOTES: 04/18 530 NOT-TAKING NORCO 5-325 MG TABLET 1 TABLET NEEDED ORALLY EVERY 8-12 HRS PRN PAIN MDD=2 MEDICATION LIST REVIEWED AND RECONCILED WITH THE PATIENT PAST MEDICAL HISTORY FATIGUE INTERVERTEBRAL DISC DISORDER WITH MYELOPATHY. LUMBAR REGION LACTOSE INTOLERANT HYPERLIPIDEMIA GERD HYPOTHYROIDISM NERVOUSNESS HPV ANEMIA ALLERGIES PENICILLIN: ANAPHYLAXIS: ALLERGY MOLD: ITCHING: ALLERGY SOCIAL HISTORY GENERAL: PAIN CLINIC PFS, CLERGY, PUBLIC HEALTH REFERRALS PFS REFERRAL NEEDED?NO CLERGY REFERRAL NEEDED?NO PUBLIC HEALTH REFERRAL NEEDED?NO WAS THE PROVIDER NOTIFIED OF ANY PERTINENT INFO?NO HAS THE PATIENT BEEN EDUCATED REGARDING HIS/HER PLAN OF CARE?YES HAS THE PATIENT BEEN EDUCATED REGARDING PAIN, THE RISK FOR PAIN, THE IMPORTANCE OF EFFECTIVE PAIN MANAGEMENT, AND THE PAIN ASSESSMENT PROCESS?YES PATIENT: ____. REVIEW OF SYSTEMS REVIEWED BY: PROVIDER: . CONSTITUTIONAL: ANY CHANGE IN YOUR MEDICAL CONDITION? NO . CHILLS NO . FEVER NO . INFECTION: DO YOU HAVE NEW INFECTIONS? NO . DO YOU HAVE HISTORY OF MRSA? NO . MUSCULOSKELETAL: ANY NEW PATTERNS OF PAIN OR NUMBNESS? NO . GASTROENTEROLOGY: ANY NEW CHANGE IN BOWEL CONTROL? NO . GENITOURINARY: ANY NEW CHANGE IN BLADDER CONTROL? NO . IS THERE A CHANCE YOU COULD BE ? NO . HEMATOLOGY/LYMPH: DO YOU TAKE ANY BLOOD THINNERS? (FOR EXAMPLE- COUMADIN, PLAVIX, AGGRENOX, PLATEL, PRADAXA, OR XARELTO) NO . WHEN WAS YOUR LAST DOSE? DATE: TIME: . NEUROLOGY: HAVE YOU FALLEN IN THE PAST 6 MONTHS? NO . ANY NEW EXTREMITY NUMBNESS OR WEAKNESS? NO . CARDIOLOGY: DO YOU HAVE A PACEMAKER OR DEFIBRILLATOR? NO . RESPIRATORY: HAVE YOU BEEN SICK IN THE PAST WEEK? YES, SORE THROAT LAST . SEEN AT URGENT CARE AND (-) FOR STREP . FEVER NO . FLU LIKE SYMPTOMS? NO . COUGH NO . INTEGUMENTARY: DO YOU HAVE ANY RASHES OR OPEN SORES? NO . ALLERGIC/IMMUNO: ARE YOU ALLERGIC TO SHELLFISH OR IV DYE? NO . ANY NEW ALLERGIES? NO . PSYCHIATRIC: DO YOU HAVE THOUGHTS OF HURTING YOURSELF OR SOMEONE ELSE? NO . ARE YOU ABUSED, NEGLECTED, OR IN AN UNSAFE ENVIRONMENT? NO . ENDOCRINOLOGY: ARE YOU DIABETIC? NO . OTHER: DO YOU NEED ANY PRESCRIPTIONS? NO . IF YES, PLEASE LIST: ____ . ANY NEW PROBLEMS WITH YOUR MEDICATIONS? NO . WHEN DID YOU LAST EAT? 04/17 1830 . WHEN DID YOU LAST DRINK? 04/18 530 . WHAT DID YOU LAST DRINK? HOT BLACK TEA . NAME OF PERSON DRIVING YOU HOME? -SOHEILA CRUZ . DO YOU HAVE ANY OTHER QUESTIONS OR CONCERNS NO . VITAL SIGNS WT 200 LBS,0 LBS, HT 63 IN, BMI 354.25 INDEX, BP 128/68 MM HG, HR 60 /MIN, RR 16 /MIN, TEMP 98.2 F, OXYGEN SAT % 97%, NA INITIALS AW 1338, REVIEWED BY: [id number]. 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 TIANNA WHITESIDE FIELD TECHNICIAN NONE ANESTHESIA LOCAL PRE PROCEDURE NOTE THE PATIENT WITH HISTORY OF CHRONIC LOW BACK PAIN. I EVALUATED THE PATIENT AND REVIEWED THE CHART. I WENT OVER THE RISKS, ALTERNATIVES, AND BENEFITS ASSOCIATED WITH THIS PROCEDURE. THE PATIENT WOULD LIKE TO PROCEED AND GAVE CONSENT TO PERFORM THE PROCEDURE. AGREED WITH THE PATIENT WE ARE DOING THIS PROCEDURE TO DETERMINE IF THE PATIENT IS A CANDIDATE FOR A RADIOFREQUENCY ABLATION OF THE FACETS JOINTS. THE PATIENT DENIES UNEXPLAINABLE WEIGHT LOSS, FEVER, CHILLS, OR NEW CHANGES IN URINARY OR BOWEL CONTROL DESCRIPTION OF PROCEDURE THE PATIENT WAS BROUGHT TO THE PROCEDURE ROOM AND PLACED IN THE PRONE POSITION. THE LUMBOSACRAL AREA WAS CLEANED WITH CHLORAPREP SOLUTION AND DRAPED ASEPTICALLY. THE PROCEDURE WAS DONE UNDER STERILE CONDITIONS. I CHECKED LATERALITY AND THE LEVEL WHERE THE PROCEDURE WAS GOING TO BE PERFORMED WITH THE PATIENT AND THE SUPPORTING STAFF AT THE MOMENT OF THE TIME OUT IN THE PROCEDURE ROOM. UNDER FLUOROSCOPIC GUIDANCE, TARGETS WERE SELECTED AT THE INTERSECTION OF THE RIGHT AND LEFT TRANSVERSE PROCESS OF L4, L5 AND ALA OF S1 WITH ITS RESPECTIVE SUPERIOR ARTICULAR PROCESS. LIDOCAINE WAS USED TO NUMB THE SKIN AND THE SUBCUTANEOUS TISSUE BELOW IT. SPINAL NEEDLE, 22-GAUGE WAS ADVANCED UNDER FLUOROSCOPIC GUIDANCE AND FOLLOWING PATIENT FEEDBACK UNTIL THE TARGETS WERE REACHED. POSITION OF THE NEEDLES WAS VERIFIED WITH AP AND LATERAL VIEWS. AFTER PROPER POSITION OF THE NEEDLES WAS ACHIEVED, ISOVUE-M DYE 30% 0.1 ML WAS INJECTED AT EACH SITE SHOWING ADEQUATE SPREAD OF THE DYE. THEN A SOLUTION OF 0.4 ML OF BUPIVACAINE 0.25% WAS INJECTED AT EACH SITE. THERE WAS NO EVIDENCE OF BLOOD, PARESTHESIA OR CEREBROSPINAL FLUID DURING THE PROCEDURE. THE PATIENT WAS SENT TO THE RECOVERY ROOM. THE PATIENT WAS MOVING THE EXTREMITIES AND DOING WELL. THERE WAS NO COMPLICATION DURING THE PROCEDURE. FLUOROSCOPY TIME WAS 30 SECONDS POST PROCEDURE NOTE THE PATIENT WILL DOCUMENT HIS PAIN LEVEL AND RESPONSE TO THIS PROCEDURE EVERY 30 MINUTES. THE PATIENT WILL BE SEEN IN A FOLLOW UP IN THE NEXT FEW WEEKS. FURTHER DETERMINATION FOR HIS CASE WILL BE DONE AT THE NEXT VISIT. INSTRUCTIONS WERE GIVEN, QUESTIONS WERE ANSWERED, AND THE PATIENT EXPRESSED UNDERSTANDING AND AGREED WITH THE PLAN. I, JARRED KAISER, DOCUMENTED THE ABOVE INFORMATION ACTING A SCRIBE FOR DR. WHITESIDE. I HAVE REVIEWED THE ABOVE DOCUMENT, WRITTEN BY JARRED SUNGIBDominik AND I VERIFY THAT IT IS [facility] DIAGNOSTIC [facility]AGING [facility] FACET BLOCK (PAIN)[id number] PROCEDURE CODES 00441 INJ PARAVERT F JNT L/S 1 LEV 14295 INJ PARAVERT F JNT L/S 2 LEV 6045F RADXPS IN END [id number] PXD DISPOSITION & COMMUNICATION FOLLOW UP 3 WEEKS ELECTRONICALLY SIGNED BY TIANNA WHITESIDE MD ON 04/19/2017 AT 10:46 AM EDT DISCLAIMER : THIS IS A VISIT SUMMARY EXTRACTED FROM THE [employer] CHART. IT IS NOT A COPY OF THE [employer] PROGRESS NOTE. MTDD
== END ==
LOC: M PAIN 13:15
PROVIDERS: ATTEND Anesthesiology
DX: G89.29 Other chronic pain (principal); M47.816 Spondylosis without myelopathy or radiculopathy, lumbar region; M47.817 Spondylosis without myelopathy or radiculopathy, lumbosacral region; Z79.899 Other long term (current) drug therapy; E78.5 Hyperlipidemia, unspecified; K21.9 Gastro-esophageal reflux disease without esophagitis; D64.9 Anemia, unspecified; Z88.0 Allergy status to penicillin; Z91.048 Other nonmedicinal substance allergy status
CPT/HCPCS: 64493; 64494; Q9967

== ENCOUNTER → 2017-06-28 | Outpatient (CLI) | payer OTHER ==
[~2017-06-28] MED LIST changes: -BUPIVACAINE HCL 0.25% 30 ML VIAL As Ordered ONE; -ISOVUE-M 300 61% 15ML VIAL (Q9967) As Ordered ONE; -LIDOCAINE 1% SDV INJ 30 ML VIAL As Ordered ONE
--- NOTE | 2017-07-28 01:54 | ECWPNPC ---
PATIENT NAME: ALPHONSE CRUZ : 1980 GENDER: FEMALE VISIT DATE: 06/28/2017 DISCHARGE DATE: 06/28/17 1621 VISIT LOCKED DATE TIME: PHYSICIAN: LUCAS MARTIN RESOURCE: LUCAS MARTIN REASON FOR APPOINTMENT 1. POST PROC HISTORY OF PRESENT ILLNESS HISTORY OF PRESENT ILLNESS: PAIN THE PATIENT DESCRIBES THE PAIN... FALL RISK SCREENING: SCREENING :NO FALLS IN THE PAST YEAR TODAY'S VISIT: NOTES: S/P DIAGNOSTIC LUMBAR FACET BLOCK #! DONE BILATERALLY AT L4-5 AND L5-S1 COMPLETED ON 04/18/17. PAIN LEVEL PRIOR WAS 6/10 POST 0-1/10 FOR ABOUT 3 DAYS. IS CURRENTLY NOTING WORST PAIN IS ON THE LEFT AND RATES THIS TODAY A 7/10. DID HAVE A RECENT NEAR FALL WHICH ALSO HAS INCREASED THE LEFT SACRAL/HIP DISCOMFORT. . CURRENT MEDICATIONS TAKING SYNTHROID 50 MCG TABLET 1 TABLET ON AN EMPTY STOMACH IN THE MORNING ORALLY ONCE A DAY TAKING FLUOXETINE HCL 40 MG CAPSULE 1 CAPSULE IN THE MORNING ORALLY ONCE A DAY TAKING SIMVASTATIN 20 MG TABLET 1 TABLET ORALLY ONCE A DAY TAKING TRAZODONE HCL 50 MG TABLET 1 TABLET ORALLY BEFORE BEDTIME TAKING TYLENOL EXTRA STRENGTH 500 MG TABLET 2 TABLETS NEEDED ORALLY EVERY 6 HRS TAKING ONE DAILY FOR WOMEN - TABLET ORALLY TAKING INDOMETHACIN 50 MG CAPSULE 1 CAPSULE WITH FOOD OR MILK ORALLY TWICE A DAY TAKING GABAPENTIN 100 MG CAPSULE DIRECTED ORALLY BID NOT-TAKING NORCO 5-325 MG TABLET 1 TABLET NEEDED ORALLY EVERY 8-12 HRS PRN PAIN MDD=2 MEDICATION LIST REVIEWED AND RECONCILED WITH THE PATIENT PAST MEDICAL HISTORY FATIGUE INTERVERTEBRAL DISC DISORDER WITH MYELOPATHY. LUMBAR REGION LACTOSE INTOLERANT HYPERLIPIDEMIA GERD HYPOTHYROIDISM NERVOUSNESS HPV ANEMIA SLEEP APNEA ALLERGIES PENICILLIN: ANAPHYLAXIS: ALLERGY MOLD: ITCHING: ALLERGY SURGICAL HISTORY PLASTIC SURGERY ON HER FACE 1983 CHOLECYSTECTOMY 2011 BILATERAL CARPAL TUNNEL SURGERY 2009 RIGHTL FOOT SURGERY 1996 COLONOSCOPY 2015 PARTIAL HYSTERECTOMY 10/19/16 SOCIAL HISTORY GENERAL: TOBACCO USE ARE YOU A:NONSMOKER RELIGIOUS [id number] NONE LANGUAGE LANGUAGES SPOKEN:[facility] PFS, CLERGY, PUBLIC HEALTH REFERRALS PFS REFERRAL NEEDED?NO CLERGY REFERRAL NEEDED?NO PUBLIC HEALTH REFERRAL NEEDED?NO WAS THE PROVIDER NOTIFIED OF ANY PERTINENT INFO?NO HAS THE PATIENT BEEN EDUCATED REGARDING HIS/HER PLAN OF CARE?YES HAS THE PATIENT BEEN EDUCATED REGARDING PAIN, THE RISK FOR PAIN, THE IMPORTANCE OF EFFECTIVE PAIN MANAGEMENT, AND THE PAIN ASSESSMENT PROCESS?YES PATIENT: ____. ADVANCE DIRECTIVES HEALTH CARE PROXY?NO DO YOU HAVE A DNR?NO LIVING WILL?NO POWER OF FARM MACHINE TENDER?NO HOSPITALIZATION/MAJOR DIAGNOSTIC PROCEDURE CHILDBIRTH 2003 REVIEW OF SYSTEMS REVIEWED BY: PROVIDER: . CONSTITUTIONAL: ANY CHANGE IN YOUR MEDICAL CONDITION? NO . CHILLS NO . FEVER NO . INFECTION: DO YOU HAVE NEW INFECTIONS? NO . DO YOU HAVE HISTORY OF MRSA? NO . MUSCULOSKELETAL: ANY NEW PATTERNS OF PAIN OR NUMBNESS? NO, PT STATES BILAT FACET BLOCK DX #1 DONE 04/18/17. PT STATES INJECTION HELPED X3 DAYS, THEN CAME BACK TO BASELINE. PT RATES PAIN TODAY 02/05 . GASTROENTEROLOGY: ANY NEW CHANGE IN BOWEL CONTROL? NO . GENITOURINARY: ANY NEW CHANGE IN BLADDER CONTROL? NO . IS THERE A CHANCE YOU COULD BE ? NO . HEMATOLOGY/LYMPH: DO YOU TAKE ANY BLOOD THINNERS? (FOR EXAMPLE- COUMADIN, PLAVIX, AGGRENOX, PLATEL, PRADAXA, OR XARELTO) NO . WHEN WAS YOUR LAST DOSE? DATE: TIME: . NEUROLOGY: HAVE YOU FALLEN IN THE PAST 6 MONTHS? NO . ANY NEW EXTREMITY NUMBNESS OR WEAKNESS? NO . CARDIOLOGY: DO YOU HAVE A PACEMAKER OR DEFIBRILLATOR? NO . RESPIRATORY: HAVE YOU BEEN SICK IN THE PAST WEEK? NO . FEVER NO . FLU LIKE SYMPTOMS? NO . COUGH NO . INTEGUMENTARY: DO YOU HAVE ANY RASHES OR OPEN SORES? NO . ALLERGIC/IMMUNO: ARE YOU ALLERGIC TO SHELLFISH OR IV DYE? NO . ANY NEW ALLERGIES? NO . PSYCHIATRIC: DO YOU HAVE THOUGHTS OF HURTING YOURSELF OR SOMEONE ELSE? NO . ARE YOU ABUSED, NEGLECTED, OR IN AN UNSAFE ENVIRONMENT? NO . ENDOCRINOLOGY: ARE YOU DIABETIC? NO . OTHER: DO YOU NEED ANY PRESCRIPTIONS? NO . IF YES, PLEASE LIST: ____ . ANY NEW PROBLEMS WITH YOUR MEDICATIONS? NO . WHEN DID YOU LAST EAT? ____ . WHEN DID YOU LAST DRINK? ____ . WHAT DID YOU LAST DRINK? ____ . NAME OF PERSON DRIVING YOU HOME? ____ . DO YOU HAVE ANY OTHER QUESTIONS OR CONCERNS NO . VITAL SIGNS WT 200 LBS, HT 63 IN, BMI 35.42 INDEX, BP 129/76 MM HG, HR 64 /MIN, RR 16 /MIN, TEMP 98.1 F, OXYGEN SAT % 96, REVIEWED BY: EM. EXAMINATION GENERAL EXAMINATION: PSYCHALERT , ORIENTED X 3 . LUNGS:CLEAR TO AUSCULTATION BILATERALLY, NO WHEEZES, RALES OR RHONCHI. HEART:HEART RATE REGULAR. MUSCULOSKELETAL:MUSCLE STRENGTH TESTING 5/5 BILATERAL. LOWER EXTREMITIES. POINT TENDERNESS OVER LUMBAR SPINOUS PROCESSESS AND ACROSS THE LUMBOSACRAL AXIS. AND, OVER LEFT>RIGHT SACRUM AND BUTTUCK.. SLOW TO RISE TO STANDING POSITION. POSTURE UPRIGHT . GAIT NONANTALGIC. 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 PROCEDURE CODES FA211 ESTABILISHED PATIENT [facility] FACILITY CHARGE DISPOSITION & COMMUNICATION FOLLOW UP AFTER INJECTION (REASON: CHECK AUTH FOR THE DIAG #2 L4-5 AND L5-S1 LEFT LUMBAR FACET BLOCK) ELECTRONICALLY SIGNED BY ANTON PAYTON ON 07/26/2017 AT 08:26 AM EST DISCLAIMER : THIS IS A VISIT SUMMARY EXTRACTED FROM THE [employer] CHART. IT IS NOT A COPY OF THE [employer] [employer] PROGRESS NOTE. HARSH
== END ==
LOC: M PAIN 14:45
PROVIDERS: ATTEND Nurse Practitioner Family
DX: M47.816 Spondylosis without myelopathy or radiculopathy, lumbar region (principal); M47.817 Spondylosis without myelopathy or radiculopathy, lumbosacral region; E78.5 Hyperlipidemia, unspecified; E03.9 Hypothyroidism, unspecified; J30.89 Other allergic rhinitis; Z79.899 Other long term (current) drug therapy; Z88.0 Allergy status to penicillin

== ENCOUNTER → 2017-07-19 | Outpatient (CLI) | payer OTHER ==
[~2017-07-19] MED LIST changes: +BUPIVACAINE HCL 0.25% 30 ML VIAL As Ordered; -FLUO40CA PO; -IBUP-1022 PO; +ISOVUE-M 300 61% 15ML VIAL (Q9967) As Ordered; -LEVO50TA5 PO; +LIDOCAINE 1% SDV INJ 30 ML VIAL As Ordered; -LORT5TAB PO; -SIMV10TA2 PO; -TRAZ-136 PO
== END ==
LOC: M PAIN 10:15
DX: M47.816 Spondylosis without myelopathy or radiculopathy, lumbar region (principal); G89.29 Other chronic pain; M47.817 Spondylosis without myelopathy or radiculopathy, lumbosacral region; E03.9 Hypothyroidism, unspecified; E78.5 Hyperlipidemia, unspecified; Z79.891 Long term (current) use of opiate analgesic; Z79.899 Other long term (current) drug therapy; Z88.0 Allergy status to penicillin; J30.89 Other allergic rhinitis
CPT/HCPCS: Q9967

== ENCOUNTER → 2017-09-27 | Outpatient (CLI) | payer OTHER ==
[~2017-09-27] MED LIST changes: +TRIAMCINOLONE ACETONIDE SUSP 40 MG/ML VIAL (J3301) As Ordered
== END | disposition home or self-care (01) ==
LOC: M PAIN 13:00
DX: G89.29 Other chronic pain (principal); M46.96 Unspecified inflammatory spondylopathy, lumbar region; E73.9 Lactose intolerance, unspecified; E78.5 Hyperlipidemia, unspecified; K21.9 Gastro-esophageal reflux disease without esophagitis; E03.9 Hypothyroidism, unspecified; D64.9 Anemia, unspecified; G47.30 Sleep apnea, unspecified; Z99.89 Dependence on other enabling machines and devices; Z79.899 Other long term (current) drug therapy; Z79.890 Hormone replacement therapy; Z88.0 Allergy status to penicillin; J30.89 Other allergic rhinitis
CPT/HCPCS: J3301

== ENCOUNTER → 2018-02-28 | Outpatient (CLI) | payer OTHER | LOC: M PAIN 13:30 | DX: M47.816 Spondylosis without myelopathy or radiculopathy, lumbar region (principal); M47.817 Spondylosis without myelopathy or radiculopathy, lumbosacral region; E78.5 Hyperlipidemia, unspecified; E03.9 Hypothyroidism, unspecified; G47.30 Sleep apnea, unspecified; J30.89 Other allergic rhinitis; Z79.899 Other long term (current) drug therapy; Z88.0 Allergy status to penicillin | CPT/HCPCS: G0463 ==

== ENCOUNTER → 2018-04-09 | Outpatient (CLI) | payer OTHER ==
[~2018-04-09] MED LIST changes: -TRIAMCINOLONE ACETONIDE SUSP 40 MG/ML VIAL (J3301) As Ordered
== END ==
LOC: M PAIN 08:30
DX: G89.29 Other chronic pain (principal); M47.816 Spondylosis without myelopathy or radiculopathy, lumbar region; M47.817 Spondylosis without myelopathy or radiculopathy, lumbosacral region; E03.9 Hypothyroidism, unspecified; G47.30 Sleep apnea, unspecified; E78.5 Hyperlipidemia, unspecified; E73.9 Lactose intolerance, unspecified; J30.89 Other allergic rhinitis; Z79.899 Other long term (current) drug therapy; Z88.0 Allergy status to penicillin
CPT/HCPCS: Q9967

== ENCOUNTER → 2018-05-09 | Outpatient (CLI) | payer OTHER ==
[~2018-05-09] MED LIST changes: -BUPIVACAINE HCL 0.25% 30 ML VIAL As Ordered; +GASTROGRAFIN SOLUTION 30ML (Q9963) As Ordered; +ISOVUE-370 76% 100ML VIAL (Q9967) As Ordered; -ISOVUE-M 300 61% 15ML VIAL (Q9967) As Ordered; -LIDOCAINE 1% SDV INJ 30 ML VIAL As Ordered
[2018-05-09 12:13] LABS: BASO # 0.1 10^3/uL (0.0-0.2); BASO % 0.7 % (0.0-1.0); EOS # 0.1 10^3/uL (0.0-0.50); EOS % 1.2 % (0.0-3.0); HEMATOCRIT 37.5 % (36.0-47.0); HEMOGLOBIN 12.6 g/dl (12.0-15.5); IMMATURE GRANULOCYTE % 0.3 % (0-3.0); LYMPH # 1.7 10^3/uL (1.5-4.5); LYMPH % 23.6 % (24.0-44.0); MEAN CORPUSCULAR HEMOGLOBIN 27.5 pg (27.0-33.0); MEAN CORPUSCULAR HGB CONC 33.6 g/dl (32.0-36.5); MEAN CORPUSCULAR VOLUME 81.9 fl (80.0-96.0); MONO # 0.6 10^3/uL (0.0-0.8); MONO % 8.5 % (0.0-5.0); NEUTROPHILS # 4.8 10^3/uL (1.8-7.7); NEUTROPHILS % 65.7 % (36.0-66.0); PLATELET COUNT, AUTOMATED 268 10^3/uL (150-450); RED BLOOD COUNT 4.58 10^6/uL (4.00-5.40); RED CELL DISTRIBUTION WIDTH 12.8 % (11.5-14.5); WHITE BLOOD COUNT 7.3 10^3/uL (4.0-10.0)
[2018-05-09 14:12] LABS: ALBUMIN/GLOBULIN RATIO 1.21 (1.00-1.93); ALKALINE PHOSPHATASE 69 U/L (45-117); ALT/SGPT 29 U/L (12-78); AMYLASE 57 U/L (25-115); ANION GAP 6 MEQ/L (8-16); AST/SGOT 19 U/L (7-37); BILIRUBIN,TOTAL 0.4 MG/DL (0.2-1.0); BLOOD UREA NITROGEN 16 MG/DL (7-18); CALCIUM LEVEL 8.8 MG/DL (8.5-10.1); CARBON DIOXIDE LEVEL 25 MEQ/L (21-32); CHLORIDE LEVEL 109 MEQ/L (98-107); CREATININE FOR GFR 0.76 MG/DL (0.55-1.30); GLOMERULAR FILTRATION RATE > 60.0 (>60); GLUCOSE, FASTING 82 MG/DL (70-100); LIPASE 128 U/L (73-393); POTASSIUM SERUM 4.5 MEQ/L (3.5-5.1); SODIUM LEVEL 140 MEQ/L (136-145); TOTAL PROTEIN 7.3 GM/DL (6.4-8.2)
== END ==
LOC: M LAB 11:20
DX: R10.10 Upper abdominal pain, unspecified (principal)
CPT/HCPCS: Q9963

== ENCOUNTER → 2018-05-15 | Outpatient (CLI) | payer OTHER | LOC: M PAIN 15:00 | DX: M47.816 Spondylosis without myelopathy or radiculopathy, lumbar region (principal); M47.817 Spondylosis without myelopathy or radiculopathy, lumbosacral region; E78.5 Hyperlipidemia, unspecified; E03.9 Hypothyroidism, unspecified; G47.30 Sleep apnea, unspecified; J30.89 Other allergic rhinitis; Z79.899 Other long term (current) drug therapy; Z88.0 Allergy status to penicillin | CPT/HCPCS: G0463 ==

== ENCOUNTER → 2018-05-20 | Outpatient (CLI) | payer OTHER | LOC: M RAD 15:25 | DX: N83.202 Unspecified ovarian cyst, left side (principal) | CPT/HCPCS: 76856 ==

== ENCOUNTER → 2018-06-24 | Outpatient (CLI) | payer OTHER ==
[~2018-06-24] MED LIST changes: +BUPIVACAINE HCL 0.25% 30 ML VIAL As Ordered; -GASTROGRAFIN SOLUTION 30ML (Q9963) As Ordered; -ISOVUE-370 76% 100ML VIAL (Q9967) As Ordered; +LIDOCAINE 1% SDV INJ 30 ML VIAL As Ordered; +TRIAMCINOLONE ACETONIDE SUSP 40 MG/ML VIAL (J3301) As Ordered
== END ==
LOC: M PAIN 14:00
DX: G89.29 Other chronic pain (principal); M47.816 Spondylosis without myelopathy or radiculopathy, lumbar region; M47.817 Spondylosis without myelopathy or radiculopathy, lumbosacral region; E03.9 Hypothyroidism, unspecified; E78.5 Hyperlipidemia, unspecified; G47.30 Sleep apnea, unspecified; E73.9 Lactose intolerance, unspecified; E66.01 Morbid (severe) obesity due to excess calories; Z68.38 Body mass index [BMI] 38.0-38.9, adult; Z79.899 Other long term (current) drug therapy; Z88.0 Allergy status to penicillin; Z91.048 Other nonmedicinal substance allergy status; Z98.890 Other specified postprocedural states
CPT/HCPCS: J3301

== ENCOUNTER → 2018-07-01 | Outpatient (CLI) | payer OTHER ==
[~2018-07-01] MED LIST changes: +ISOVUE-M 300 61% 15ML VIAL (Q9967) As Ordered; -TRIAMCINOLONE ACETONIDE SUSP 40 MG/ML VIAL (J3301) As Ordered
== END ==
LOC: M PAIN 14:30
DX: G89.29 Other chronic pain (principal); M47.816 Spondylosis without myelopathy or radiculopathy, lumbar region; M47.817 Spondylosis without myelopathy or radiculopathy, lumbosacral region; E78.5 Hyperlipidemia, unspecified; E03.9 Hypothyroidism, unspecified; G47.30 Sleep apnea, unspecified; J30.89 Other allergic rhinitis; E66.01 Morbid (severe) obesity due to excess calories; Z68.37 Body mass index [BMI] 37.0-37.9, adult; Z88.0 Allergy status to penicillin
CPT/HCPCS: Q9967

== ENCOUNTER → 2021-08-19 | Outpatient (CLI) | payer OTHER ==
[~2021-08-19] MED LIST changes: -BUPIVACAINE HCL 0.25% 30 ML VIAL As Ordered; +FLUO40CA PO; +IBUP-1022 PO; -ISOVUE-M 300 61% 15ML VIAL (Q9967) As Ordered; +LEVO50TA5 PO; -LIDOCAINE 1% SDV INJ 30 ML VIAL As Ordered; +LORT5TAB PO; +SIMV10TA21 PO; +TRAZ-257 PO
[2021-08-19 16:08] LABS: BASO # 0.1 10^3/uL (0.0-0.2); BASO % 0.5 % (0.0-1.0); EOS # 0.1 10^3/uL (0.0-0.5); EOS % 1.3 % (0.0-3.0); HEMATOCRIT 40.9 % (36.0-47.0); HEMOGLOBIN 12.9 g/dl (12.0-15.5); LYMPH # 2.2 10^3/uL (1.5-5.0); LYMPH % 23.8 % (24.0-44.0); MEAN CORPUSCULAR HEMOGLOBIN 27.8 pg (27.0-33.0); MEAN CORPUSCULAR HGB CONC 31.5 g/dl (32.0-36.5); MEAN CORPUSCULAR VOLUME 88.1 fl (80.0-96.0); MONO # 0.7 10^3/uL (0.0-0.8); MONO % 7.2 % (2.0-8.0); NEUTROPHILS # 6.1 10^3/uL (1.5-8.5); NEUTROPHILS % 66.9 % (36.0-66.0); PLATELET COUNT, AUTOMATED 278 10^3/uL (150-450); RED BLOOD COUNT 4.64 10^6/uL (4.00-5.40); WHITE BLOOD COUNT 9.2 10^3/uL (4.0-10.0)
[2021-08-19 16:39] LABS: ALBUMIN 3.9 GM/DL (3.2-5.2); ALT/SGPT 26 U/L (12-78); BILIRUBIN,TOTAL < 0.1 MG/DL (0.2-1.0); BLOOD UREA NITROGEN 9 MG/DL (7-18); CALCIUM LEVEL 8.7 MG/DL (8.5-10.1); CARBON DIOXIDE LEVEL 28 MEQ/L (21-32); CHLORIDE LEVEL 107 MEQ/L (98-107); CHOLESTEROL LEVEL 220 MG/DL (<200); CHOLESTEROL RISK RATIO 5.641 (<5); CREATININE FOR GFR 0.82 MG/DL (0.55-1.30); FREE T4 0.84 NG/DL (0.76-1.46); GLOMERULAR FILTRATION RATE > 60.0 (>60); GLUCOSE, FASTING 126 MG/DL (70-100); HDL CHOLESTEROL 39 MG/DL (>40); LDL CHOLESTEROL 114 MG/DL (<100); NON-HDL-C 181 MG/DL; POTASSIUM SERUM 3.8 MEQ/L (3.5-5.1); SODIUM LEVEL 141 MEQ/L (136-145); TOTAL PROTEIN 7.5 GM/DL (6.4-8.2); TRIGLYCERIDES LEVEL 337 MG/DL (<150)
== END ==
LOC: M WUC 10:31
PROVIDERS: ATTEND Physician Assistant
DX: E78.2 Mixed hyperlipidemia (principal); E03.9 Hypothyroidism, unspecified; S69.91XA Unspecified injury of right wrist, hand and finger(s), initial encounter; X58.XXXA Exposure to other specified factors, initial encounter; Y92.89 Other specified places as the place of occurrence of the external cause; Y93.89 Activity, other specified; Y99.8 Other external cause status

== ENCOUNTER → 2021-11-30 | Outpatient (CLI) | payer OTHER | LOC: M PLAIMG 13:39 | PROVIDERS: ATTEND Nurse Practitioner Family | DX: M54.2 Cervicalgia (principal) ==